=== PATIENT | female | born 2000 | race Caucasian/White ===

== ENCOUNTER 2020-08-07 17:39 | Emergency (ER) | payer BC, SELFPAY ==
[2020-08-07 18:27] VITALS: BP 137/86; PULSE 65; RESP 18; O2SAT 100; BMI 23.1
--- NOTE | 2020-08-07 18:30 | ED_ITS ---
[facility] [place] Disposition Clinical Impression: Right lower quadrant abdominal pain Disposition: Still a Patient Condition on Discharge: Undetermined Additional Instructions: Transferred to ER for further workup Referrals: Weston Call [Primary Care Provider] - Time of Disposition: 18:39 Medical Decision Making - Jt Inquiry Pt receiving controlled substance: No [facility] [place] HPI - General Stated complaint: knot on R side Time Seen by Provider: 08/07/20 18:30 - History of Present Illness Provider Complaint: 20 year old WF with 2 days history of palpable knot in RLQ and hematuria. She denies any specific injury. She does a lot of lifting at work but can't recall a specific event when pain started. Noticed knot 2 nights ago in the shower. No nausea, vomiting or diarrhea. No fever. LMP 1 month ago. Has had blood with urination - wasn't sure if it was her period or related to the knot. Certain movements are incredibly painful, such as changing from laying to sitting or vice versa. Onset (ago): day(s) (2) Location: abdomen Relieving factors: none Exacerbating factors: none Treatments prior to arrival: none - Related Data Home Medications Medication Instructions Recorded Confirmed No Known Home Medications 12/09/17 12/09/17 Allergies Allergy/AdvReac Type Severity Reaction Status Date / Time From AUGMENTIN Allergy Unknown TURNS BLUE Uncoded 12/09/17 13:49 [facility] History - Hepatitis A Screen Attestation statement:: This patient has been screened for Hepatitis A risk factors. I have reviewed the patient's past medical history: Yes Other Surgeries: Yes: No Previous Surgery, Plastic Surgery (cleft lip repair) Amputation: No Fractures: No - Social History Smoking Status: Never smoker Alcohol Intake: never Family Hx:: Cancer ROS Obtained: Yes All systems reviewed & no additional complaints - Gastrointestinal Gastrointestingal: Reports: abdominal pain - Genitourinary Female Genitourinary: Reports hematuria Physical Exam - General General appearance: alert, in no apparent distress - Head Head exam: normocephalic - Eye Eye exam: Present: PERRL - ENT ENT exam: Present: normal oropharynx - Respiratory Respiratory exam: Present: normal lung sounds bilaterally - Cardiovascular Cardiovascular exam: Present: regular rate, normal rhythm - Abdominal Exam Abdominal exam: Present: tenderness, guarding, rebound Abdominal tenderness: Present: RLQ - Neurological Exam Neurological exam: Present: alert, oriented X3 - Psychiatric Psychiatric exam: Present: normal affect, normal mood - Skin Skin exam: Present: warm, dry
[2020-08-07 18:40] VITALS: BP 141/78; PULSE 63; RESP 16; TEMP 36.8; O2SAT 98; BMI 23.7
--- NOTE | 2020-08-07 18:54 | CT_ITS ---
PROCEDURE: CT ABDOMEN PELVIS W CON CLINICAL INDICATION: abd pain Generalized abdominal pain COMPARISON: No exams were available for comparison TECHNIQUE: IV Contrast: 75ML OPTIRAY 350 Oral Contrast None Axial images obtained with sagittal and coronal reformats. All CT scans at the facility use one or more dose reduction, viz: automated exposure control, ma/kV adjustment per patient size (including targeted exams where dose is matched to indication, i.e. head), or iterative reconstruction technique. FINDINGS: LOWER THORAX: There is a 6 mm noncalcified nodule in the right lower lobe anteriorly and laterally and an additional 5 mm nodule in the right lower lobe anteriorly. ABDOMEN & PELVIS: The liver, gallbladder, adrenal glands, and pancreas have an unremarkable appearance. A curvilinear fluid density is present in the left upper quadrant inferior to the pancreatic tail and may be related to an unopacified bowel loop fluid-filled. The spleen and kidneys have an unremarkable appearance. No intestinal obstruction or free air. No evidence of appendicitis. No pelvic mass abnormal fluid collection or focal inflammatory change of the pelvis. A tampon is in place. No acute bony findings. Multiple unopacified bowel loops in the abdomen or pelvis which could obscure or mimic pathology. If symptoms persist, consider repeat exam with IV and oral contrast. There may be a small left ovarian cyst at 1.9 x 1 cm. The IMPRESSION: 1. No acute finding. 2. Multiple unopacified bowel loops in the abdomen or pelvis which could obscure or mimic pathology. If symptoms persist, consider repeat exam with IV and oral contrast. 3. Nonacute findings as detailed above. Dictated by: Elmo Mosley MD 08/08/2020 06:09 Elmo Mosley MD in OV 08/08/2020 06:09
--- NOTE | 2020-08-07 19:08 | PC.NURSE ---
received report from day nurse
[2020-08-07 19:18] LABS: Microscopic, Urine URINE MICROSCOPIC (MICROSCOPIC)
[2020-08-07 19:21] LABS: Basophils # 0.1 K/mm3 (0-0.2); Basophils % 0.8 % (0.1-2.0); Eosinophils # 0.3 K/mm3 (0.0-0.4); Eosinophils % 3.2 % (0.1-12.0); Hematocrit 44.3 % (37.0-47.0); Lymphocytes # 2.2 K/mm3 (0.7-4.5); Lymphocytes % 23.6 % (10-50); Mean Corpuscular HGB Conc 33.8 g/dL (31.8-35.4); Mean Corpuscular Hemoglobin 29.6 pg (27.0-31.2); Mean Corpuscular Volume 87.5 fl (81-99); Mean Platelet Volume 7.9 fl (7.4-10.4); Monocytes # 0.4 K/mm3 (0.1-1.0); Monocytes % 4.5 % (1.7-9.3); Neutrophils # 6.3 K/mm3 (1.8-7.8); Neutrophils % 67.8 % (37.0-80.0); Platelet Count 301 K/mm3 (142-424); Red Blood Count 5.06 M/mm3 (4.20-5.40); White Blood Count 9.3 K/mm3 (4.5-13.0)
--- NOTE | 2020-08-07 19:23 | HMH.EDGENADL ---
ED Disposition Condition on Discharge: Good - Critical Care Critical Care Time: No <ManinderclaryLui - Last Filed: 08/07/20 20:14> <Corey Evangelista - Last Filed: 08/07/20 20:40> Clinical Impression: Right lower quadrant abdominal pain Disposition: Home, Self-Care Instructions: DI for Acute Abdomen Additional Instructions: Transferred to ER for further workup Referrals: Weston Call [Primary Care Provider] - Attestation: On 08/07/20, the high probability of a clinically significant, sudden or life threatening deterioration of the following system(s) required my full and direct attention, intervention and personal management. The time I documented below is in addition to time spent performing reported procedures but includes the following listed in this critical care notation. Medical Decision Making - Medical Records Medical records reviewed: Yes: I reviewed the patient's medical records. - Jt Inquiry Pt receiving controlled substance: No - Lab Data Lab results reviewed: Yes: I reviewed the patient's lab results. Result diagrams: 08/07/20 19:00 08/07/20 19:00 <ManinderclaryLui - Last Filed: 08/07/20 20:14> - Lab Data Result diagrams: 08/07/20 19:00 08/07/20 19:00 - CT Data CT Scan: Abdomen, Pelvis Time Received: 20:[address] Reviewed: Yes: I have viewed the radiologist's interpretation Preliminary Findings: Normal/NAD <Corey Evangelista - Last Filed: 08/07/20 20:40> Vital Signs: 08/07/20 18:27 08/07/20 18:40 08/07/20 19:51 Temperature 98.2 F Temperature Source Oral Pulse Rate [Radial] 65 63 75 Respiratory Rate 18 16 18 Blood Pressure [Right Arm] 137/86 141/78 H 138/84 Blood Pressure Mean [Right Arm] 103 99 102 Blood Pressure Source [Right Arm] Automatic Cuff Blood Pressure Position [Right Arm] Sitting Sitting 02 Sat by Pulse Oximetry 100 98 100 Oxygen Delivery Method Room Air Room Air 08/07/20 20:06 Temperature Temperature Source Pulse Rate [Radial] 70 Respiratory Rate 18 Blood Pressure [Right Arm] 134/74 Blood Pressure Mean [Right Arm] 94 Blood Pressure Source [Right Arm] Blood Pressure Position [Right Arm] 02 Sat by Pulse Oximetry 99 Oxygen Delivery Method - Lab Data Lab Results 08/07/20 19:00: Urine Color Yellow, Urine Appearance Clear, Urine pH 6.0, Ur Specific [place] >= 1.030, Urine Protein Negative, Urine Glucose (UA) Negative, Urine Ketones Negative, Urine Blood 3+, Urine Nitrate Positive, Urine Bilirubin Negative, Urine Urobilinogen 0.2, Ur Leukocyte Esterase Negative, Urine RBC 10-20, Ur Squamous Epith Cells 5-10, Uric Acid Crystals 1+, Amorphous Sediment 1+ 08/07/20 19:00: WBC 9.3, RBC 5.06, Hgb 15.0, Hct 44.3, MCV 87.5, MCH 29.6, MCHC 33.8, RDW 13.0, Plt Count 301, MPV 7.9, Neut % (Auto) 67.8, Lymph % (Auto) 23.6, Hart % (Auto) 4.5, Eos % (Auto) 3.2, Baso % (Auto) 0.8, Neut # (Auto) 6.3, Lymph # (Auto) 2.2, Hart # (Auto) 0.4, Eos # (Auto) 0.3, Baso # (Auto) 0.1 08/07/20 19:00: Urine HCG, Qual Negative 08/07/20 19:00: Sodium 142, Potassium 3.5, Chloride 105, Carbon Dioxide 25, Anion Gap 15.5 H, BUN 12, Creatinine 0.70, Estimated Creat Clear 165, Estimated GFR 107, Est GFR ( Amer) 129, Glucose 99, Calcium 9.7, Total Bilirubin 0.5, AST 27, ALT 23, Alkaline Phosphatase 88, Total Protein 8.7 H, Albumin 4.8, Globulin 3.9 H, Albumin/Globulin Ratio 1.2 08/07/20 19:10: Amylase 85, Lipase 102 Orders (Tests/Meds): ED MEDICATIONS Discontinued Medications Generic Name Dose Route Start Last Admin Trade Name Freq PRN Reason Stop Dose Admin Ioversol 75 ml 08/07/20 19:51 08/07/20 19:52 Rad-Optiray 350 100ml Vial IV 08/07/20 19:52 75 ml ONCE ONE Administration Protocol Sodium Chloride 10 ml 08/07/20 19:51 08/07/20 19:52 Rad-Saline Flush 10ml Syringe IV 08/07/20 19:52 10 ml ONCE ONE Administration ORDERS Category Date Time Status CT abdomen pelvis w con Stat Cat Scan 08/07/20 18:54 Taken Urine Culture Routi
[2020-08-07 19:26] LABS: Appearance,Urine CLEAR (Clear); Bilirubin,Urine Negative (Negative); Blood, Urine 3+ (Negative); Color,Urine YELLOW (Yellow); Glucose,Urine (UA) Negative (Negative); Ketones,Urine Negative (Negative); Leukocyte Esterase,Urine Negative (Negative); Nitrate,Urine POSITIVE (Negative); Protein,Urine Negative (Negative); Specific Gravity, Urine >= 1.030 (1.005-1.030); Urobilinogen,Urine 0.2 EU/dl (0.2)
[2020-08-07 19:29] LABS: Urine Pregnancy, HCG Qual. Negative (Negative)
[2020-08-07 19:30] LABS: Amorphous Sediment,Urine 1+ /lpf; Uric Acid Crystals,Urine 1+ /lpf
--- NOTE | 2020-08-07 19:36 | PC.NURSE ---
pt to XR
[2020-08-07 19:40] LABS: Amylase 85 U/L (30-110); Lipase 102 U/L (23-300)
[2020-08-07 19:50] LABS: Chloride 105 mmol/L (98-107)
[2020-08-07 19:51] VITALS: BP 138/84; PULSE 75; RESP 18; O2SAT 100
[2020-08-07 19:51] LABS: Potassium 3.5 mmoL/L (3.5-5.1); Sodium 142 mmol/L (136-145)
[2020-08-07 19:53] LABS: Alanine Aminotransferase 23 U/L (12-78); Alkaline Phosphatase 88 U/L (38-126); Aspartate Amino Transferase 27 U/L (14-36); Bilirubin,Total 0.5 mg/dl (0.2-1.3); Blood Urea Nitrogen 12 mg/dl (7-17); Creatinine Clearance Estimated 165 mL/min (50-200); Estimated Glomerular Filt Rate 107 ml/min (>60); GFR (African American) 129 ML/MIN (>60)
[2020-08-07 19:54] LABS: Albumin Level 4.8 g/dl (3.5-5.0); Albumin/Globulin Ratio 1.2 (1.1-1.8); Anion Gap 15.5 mEq/L (5-15); Calcium 9.7 mg/dl (8.4-10.2); Carbon Dioxide 25 mmol/L (22.0-30.0); Globulin 3.9 g/dL (1.3-3.2); Glucose 99 mg/dl (74-100); Total Protein,Serum 8.7 g/dl (6.3-8.2)
[2020-08-07 20:06] VITALS: BP 134/74; PULSE 70; RESP 18; O2SAT 99
[2020-08-07 20:39] VITALS: BP 122/64; PULSE 75; RESP 18; O2SAT 100
[2020-08-07 20:57] VITALS: BP 125/74; PULSE 74; RESP 18; TEMP 36.7
== END 2020-08-07 20:58 | disposition home or self-care (01) ==
LOC: UTC 17:48 → ER 18:39
PROVIDERS: Emergency Provider Emergency Medicine; PCP Family Medicine
DX: R22.2 Localized swelling, mass and lump, trunk (principal); R10.31 Right lower quadrant pain
CPT/HCPCS: 74177; 80053; 81001; 81025; 82150; 83690; 85025; 87086; 87088; 99283; Q9967

== ENCOUNTER 2025-11-05 15:47 | Outpatient (CLI) | payer BC, SELFPAY ==
--- OUTSIDE RECORDS SUMMARY | 2025-11-05 15:49 | XMS_ITS | Clinical Summary ---
Author Organization [facility] Address [address] [place] [address] Care Team Providers Care Registered Mail Clerk Name Role Phone Weston Call MD Primary Care Provider [phone] Allergies Active Allergy Reactions Criticality Noted Date Comments Amoxicillin-Pot Clavulanate Other - please document in the comment field Medium 06/30/2018 Patient reports immediate bluish skin discoloration in childhood but denies swelling ,shortness of breath, vital instability or other severe reaction. Reports she can tolerate penicillin and amoxicillin alone. PENFAST = 2 Shellfish Allergy Fever,Vomiting High 09/24/2023 Medications ciprofloxacin-dex amethasone (CiproDEX) otic suspension Administer 4 drops into the right ear 1 (one) time each day. 4 Active norethindrone-eth inyl estradiol (11/30) 1-20 MG-MCG tabletIndications :Encounter for initial prescription of contraceptive pills Take 1 tablet by mouth 1 (one) time each day. 84 tablet 3 4 Active Active Problems Problem Noted Date Diagnosed Date , supervision of first, third trimester 04/02/2024 Cleft lip and palate, , affecting care of mother, antepartum 01/20/2024 Supervision of normal first , antepartu m 09/10/2023 Laceration of labia majora 07/16/2023 Assessment & Plan (08/14/2023 1:48 PM EDT): - repair site healing well, 3 stitches removed, no signs of infection - continue precautions for 2 more weeks - RTC prn Assessment & Plan (07/16/2023 2:40 PM EDT): - Ms. Metcalf was evaluated at OSH ED and advised to seek care from OB-CIVIL ENGINEERING TECHNICIAN due to concern for injury of nearby structures - Ms. Metcalf states pain is well controlled on Ibuprofen - On physical exam, one 4 cm laceration of right labia minora is noted - After numbing with lidocaine, laceration is closed with Vicryl - Ms. Metcalf tolerated procedure well - Discussed that light bleeding is expected - Informed patient to avoid submerging stitches in bodies of water - RTC in 4 weeks for follow up or sooner if bleeding worsens or develop fever, chills, or purulent discharge from site Resolved Problems Problem Noted Date Diagnosed Date Resolved Date Supervision of high risk pre gnancy in third trimester 02/19/2024 08/01/2025 Rubella non-immune status, antepartum 09/12/2023 08/15/2025 Family History Medical History Relation Name Comments ADD / ADHD Brother Cleft lip and palate Daughter Gout Father Hypertension Father No Known Problems Father's Sister Lung cancer Maternal Grandfather Breast cancer Maternal Grandmother Cancer Maternal Grandmother Breast Thyroid disease Mother No Known Problems Paternal Grandfather No Known Problems Paternal Grandmother Relation Name Status Comments Brother Alive Daughter Alive Father Alive Father's Sister Alive Maternal Grandfather Maternal Grandmother Alive Mother Alive Paternal Grandfather Alive Paternal Grandmother Alive Social History Tobacco Use Types Packs/Day Years Used Date Smoking Tobacco: Never Passive Smoke Exposure: Yes Smokeless Tobacco: Never Tobacco Cessation:Counseling Given: Not Answered Alcohol Use Standard Drinks/Week Comments Not Currently 1 (1 standard drink = 0.6 oz pure alcohol) Alcoholic Drinks/day: Denies alcohol consumption PHQ-2 Answer Date Recorded Patient Health Questionnaire-2 Score 0 02/19/2024 [place] Depression Scale Answer Date Recorded [place] Depression Scale Total 5 05/13/2024 The thought of harming myself has occurred to me . Never 05/13/2024 CAGE ASSESSMENT Answer Date Recorded Cage unable to access Not on file 04/02/2024 Cage max number of drinks Not on file 2023 Cage Beverages a week Not on file 04/02/2024 Have you ever felt you should CUT down on your d rinking? 0 04/02/2024 Have you been ANNOYED by people criticizing your drinking? 0 04/02/2024 Have you felt GUILTY about your drinking? 0 04/02/2024 Have you had a drink first t dimitris in the morning (EYE-GLUE DRIER OPERATOR) to steady your nerves or to get rid of a hangover? 0 04/02/2024 CAGE Questionnaire Score 0 024 PHQ-2A Answer Date Recorded Patient Health Questionnaire-2 Score 0 09/24/2023 Comments No Sex and Gender Information Value Date Recorded Sex Assigned at Not on file Legal Sex Female 8:53 PM EDT Gender Identity Not on file Sexual Orientation Not on file Last Filed Vital Signs Vital Sign Reading Time Taken Comments Blood Pressure 125/82 05/13/2024 1:24 PM EDT Pulse 65 05/13/2024 1:24 PM EDT Temperature 36.7 C (98 F) 05/13/2024 1:24 PM EDT Respiratory Rate 16 05/13/2024 1:24 PM EDT Oxygen Saturation 98% 05/13/2024 1:24 PM EDT Inhaled Oxygen Concentration - - Weight 92.5 kg (203 lb 14.8 oz) 05/13/2024 1:24 PM EDT Height 185.4 cm (6' 1 ) 05/13/2024 1:24 PM EDT Body Mass Index 26.9 05/13/2024 1:24 PM EDT Plan of Treatment Health Maintenance Due Date Last Done Comments [facility]-Infant/Child/Adol SDOH Screenings 2000 [facility]-Varicella Vaccines (1 of 2 - 13+ 2-dose series) 2013 HPV Vaccines (1 - 3-dose series) 2015 [facility]- SDOH Screenings 2018 [facility]-Adult SDOH Screenings 2018 [facility]-DTaP,Tdap,and Td Vaccines (1 - Tdap) 2019 [facility]-Hepatitis B Vaccines (1 of 3 - 19+ 3-dose series) 2019 [facility]-Pap Smear 2021 [facility]-Depression Screening 05/13/2025 05/13/2024, 02/09 [id number] Vaccine ( season) 2025 [facility]-Influenza Vaccine (#1) 2025 [facility]-Zoster Vaccines (1 of 2) 2050 [facility]-HIV Screening Completed 09/10/2023 [facility]-Hepatitis C Screening Completed 09/10/2023 [facility]-Obesity Intervention Completed 024, 04/16/2024, 03/23/2024, Additional history exists [facility]-HIB Vaccines Aged Out No longer e ligible based on patient's age to complete this topic [facility]-Hepatitis A Vaccines Aged Out No longer eligible based on patient's age to complete this topic [facility]-IPV Vaccines Aged Out No longer e ligible based on patient's age to complete this topic [facility]-Pneumococcal Vaccine: Pediatrics (0 to 5 Years) and At-Risk Patients (6 to 49 Years) Aged Out No longer eligible based on patient's age to complete this topic [facility]-Rotavirus Vaccines Aged Out No lo nger eligible based on patient's age to complete this topic Procedures Procedure Name Priority Date/Time Associated Diagnosis Comments HEPATITIS C ANTIBODY W/REFLEX TO HCV QUANT PCR Routine 09/10/2023 11:16 AM EDT Supervision of normal first , antepartum HIV 1/2 ANTIBODY/ANTIGEN SCREEN WITH REFLEX TO HIV I/II DIFFERENTIATION Routine 09/10/2023 11:16 AM EDT Supervision of normal first , antepartum from Last 3 Months or Most Recently Relevant to Health Maintenance Results * HIV 1 & 2 Antibody/Antigen Screen (09/10/2023 11:16 AM EDT) HIV 1 & 2 Antibody/Antigen Screen Non Reactive Non Reactive 09/10/2023 2:18 PM EDT [facility] Comment:Screening for HIV 1 & 2 antibodies, and P24 antigen is NONREACTIVE. No confirmatory testing is required. Blood Venous blood specimen / Unknown Venipuncture / Unknown 09/10/2023 11:16 AM EDT 09/10/2023 1:29 PM EDT Yris Reynoso APRN, CNM LAB BLOOD ORDERABLE S Final Result [facility] [address] [place] [address] * Hepatitis C Antibody w/Reflex to HCV Quant PCR (09/10/2023 11:16 AM EDT) Hepatitis C Antibody Negative Negative 09/10/2023 2:18 PM EDT [facility] Blood Venous blood specimen / Unknown Venipuncture / Unknown 09/10/2023 11:16 AM EDT 09/10/2023 1:29 PM EDT us Yris Valentine Angeles WIGGINS CNM LAB BLOOD ORDERABLE S Final Result [facility] [address] [place] [address] from Last 3 Months or Most Recently Relevant to Health Maintenance Insurance ANTH Advance Directives * Full Code (Latest Code Status on File) Date Activated Date Inactivated Comments 04/02/2024 7:47 AM 04/04/2024 6:53 PM Question Answer Comments Patient has decision-making capacity? Yes Care Teams Registered Mail Clerk Relationship Specialty Start Date End Date Weston Call MD [address] [phone] [facility] - General 03/24/21
--- NOTE | 2025-11-05 15:58 | XR_ITS ---
FINAL REPORT CLINICAL HISTORY: pain in great toe FINDINGS: Right foot THREE VIEW FINDINGS: Three views show no evidence of an acute, displaced fracture or dislocation of the visualized bony architecture. The joint spaces appear normal. IMPRESSION: Unremarkable exam. Authenticated and ERN
[2025-11-05 17:27] LABS: Uric Acid 4.8 mg/dl (2.5-6.2)
== END 2025-11-05 23:59 | disposition home or self-care (01) ==
PROVIDERS: PCP Family Medicine; Visit Provider Nurse Practitioner
DX: M79.674 Pain in right toe(s) (principal); R10.31 Right lower quadrant pain
CPT/HCPCS: 36415; 73630; 84550